=== PATIENT | female | born 1970 | race Caucasian/White ===

== ENCOUNTER 2018-08-25 12:05 | Observation (INO) ==
[2018-08-25] MEDS ORDERED: Naloxone 0.4 MG/ML INJ IVP PRN (12:24)
[2018-08-25] MEDS ORDERED: Piperacillin/Tazobactam 3.375 GM in 0.9 % Sodium Chloride Mini Bag 100 ML IVPB SCH (12:26)
[2018-08-25] MEDS ORDERED: MORPHINE SUL Oral CONC 10 MG/0.5 ML ORAL.SYG PO PRN (12:27)
[2018-08-25] MEDS ORDERED: Acetaminophen 325 MG TABLET PO PRN (12:27)
[2018-08-25] MEDS ORDERED: OXYCODONE Oral CONC 10 MG/0.5 ML ORAL.SYG SL PRN (12:27)
[2018-08-25] MEDS ORDERED: Isovue-370 500 ML INFUS..BTL IV ONE (12:27)
--- NOTE | 2018-08-25 12:37 | General Surg History&Physical ---
<Cookie Juan - Last Filed: 08/25/18 12:49> Date of Encounter: 08/25/18 Time of Encounter: 12:33 Assessment and Plan (1) RUQ pain Current Visit: Yes Status: Acute The assessment and plan as outlined above was discussed with the patient and/or family members who expressed understanding and agreement. All questions were answered. NPO IV fluids- 100ml/hour IV antibiotics- Zosyn CT scan of abdomen/pelvis with PO/IV contrast Supportive care/pain control Labs- CBC, BMP, Hepatic panel, test PPI therapy daily EPCDs to bilateral lower extremities We will plan for a laparoscopic cholecystectomy with Dr. Garcia pending further testing History of Present Illness Chief complaint: RUQ abdominal pain HPI: Ms. Carrasco is a 48 year old female who presents to the outpatient surgical office today to see Dr. Garcia. She complains of a 5 day history of continuous abdominal pain. She describes the pain as being located in the epigastric region and radiating into the RUQ. She admits to nausea and belching. Admits to diarrhea and increased gas. Denies fevers/chills. She admits to having a RUQ ultrasound which demonstrated gallbladder polyps. She has an elevated WBC count of 13,000. Her physical examination is suggestive of acute cholecystitis. Dr. Garcia has recommended admission to the hospital and CT of the abdomen/pelvis to rule out secondary causes of her pain. Will initiate IV antibiotic therapy. Past Med Surg Social Fam HX - Past Medical History Source: old records reviewed Medical history: other Additional medical history: Heavy menses - Past Surgical History Additional surgical history: D&C - Social History Smoking Status: Never smoker Alcohol use: none Drug use: none Current living situation: Home - Independent Activity Level: Independent ambulation Review of Systems All systems PM: reviewed and no additional remarkable complaints except as stated (in the HPI) All systems PM: The remainder of the systems were reviewed and are negative General Surgery Exam - General physical appearance well developed, well nourished - Eyes normal ocular movement - ENT atraumatic, normocephalic - Neck trachea midline - Respiratory normal respiratory effort, clear to auscultation - Cardiovascular Cardiovascular exam: Present: tachycardia - Abdomen Abdomen general surgery: Present: bowel sounds present, soft, tender Abdominal Tenderness: Present: epigastic, RUQ (positive montoya's sign) - Neurologic Present: CN 2-12 grossly intact - Musculoskeletal Present: normal gait, normal posture - Psychiatric Psychiatric general surgery: Present: appropriate, oriented to person, oriented to place, oriented to time, speech is normal, memory intact Results - Labs All other labs normal. - Attending Attestation For this encounter, I have reviewed the IS PROJECT MANAGER or PA documentation, treatment plan, and medical decision making; and I have had face to face time with this patient. <Davie Garcia T - Last Filed: 08/26/18 07:54> Date of Encounter: 08/25/18 Assessment and Plan (1) RUQ pain Current Visit: Yes Status: Acute The assessment and plan as outlined above was discussed with the patient and/or family members who expressed understanding and agreement. All questions were answered. History of Present Illness HPI: Ms. Carrasco is a 48 year old female Review of Systems All systems PM: The remainder of the systems were reviewed and are negative General Surgery Exam Initial Vital Signs Temp Pulse Resp BP Pulse Ox 97.7 F 91 18 165/96 100 08/25/18 12:57 08/25/18 12:57 08/25/18 12:57 08/25/18 12:57 08/25/18 12:57 Results - Labs 08/26/18 05:39 08/26/18 05:39 Abnormal lab results Sodium 134 mEq/L (136-145) L 08/26/18 05:39 Carbon Dioxide 14 mEq/L (23-29) L 08/26/18 05:39 Creatinine 1.31 mg/dL (0.60-1.20) H 08/26/18 05:39 Est GFR ( Amer) 52 (> 60) L 08/26/18 05:39 Est GFR (Non-Af Amer) 43 (> 60) L 08/26/18 05:39 Glucose 54 mg/dL (70-105) L 08/26/18 05:39 Calculated Osmolality 276 (280-300) L 08/26/18 05:39 Diabetes panel 08/25/18 08/26/18 Range/Units 12:46 05:39 Sodium 136 134 L (136-145) mEq/L Potassium 3.6 4.0 (3.5-5.1) mEq/L Chloride 102 104 (98-107) mEq/L Carbon Dioxide 18 L 14 L (23-29) mEq/L BUN 15 15 (6-20) mg/dL Creatinine 1.19 1.31 H (0.60-1.20) mg/dL Glucose 70 54 L (70-105) mg/dL Calcium 9.5 8.8 (8.6-10.3) mg/dL AST 13 (13-39) Units/L ALT 8 (7-52) Units/L Alkaline Phosphatase 71 (34-104) Units/L Albumin 4.6 (3.5-5.7) g/dL Calcium panel 08/25/18 08/26/18 Range/Units 12:46 05:39 Calcium 9.5 8.8 (8.6-10.3) mg/dL Albumin 4.6 (3.5-5.7) g/dL Pituitary panel 08/25/18 08/26/18 Range/Units 12:46 05:39 Sodium 136 134 L (136-145) mEq/L Potassium 3.6 4.0 (3.5-5.1) mEq/L Chloride 102 104 (98-107) mEq/L Carbon Dioxide 18 L 14 L (23-29) mEq/L BUN 15 15 (6-20) mg/dL Creatinine 1.19 1.31 H (0.60-1.20) mg/dL Glucose 70 54 L (70-105) mg/dL Calcium 9.5 8.8 (8.6-10.3) mg/dL Adrenal panel 08/25/18 08/26/18 Range/Units 12:46 05:39 Sodium 136 134 L (136-145) mEq/L Potassium 3.6 4.0 (3.5-5.1) mEq/L Chloride 102 104 (98-107) mEq/L Carbon Dioxide 18 L 14 L (23-29) mEq/L BUN 15 15 (6-20) mg/dL Creatinine 1.19 1.31 H (0.60-1.20) mg/dL Glucose 70 54 L (70-105) mg/dL Calcium 9.5 8.8 (8.6-10.3) mg/dL Total Bilirubin 1.0 (0.3-1.0) mg/dL AST 13 (13-39) Units/L ALT 8 (7-52) Units/L Alkaline Phosphatase 71 (34-104) Units/L Albumin 4.6 (3.5-5.7) g/dL All other labs normal. - Attending Attestation I have personally performed a face to face evaluation on this patient. I have reviewed and agree with the care plan. History and Exam by me shows: The patient is seen and evaluated in the office and discussed with the clinical nurse practitioner. The patient has epigastric and right upper quadrant pain associated with leukocytosis and diarrhea. The original ultrasound of the right upper quadrant is reviewed. She has 2 small possible polyps in the gallbladder with no gallbladder wall thickening or pericholecystic fluid. These are very soft findings to support acute cholecystitis. We will plan to get a CAT scan of the abdomen to see if a secondary cause can be identified. She will be started on IV antibiotics and IV fluids in anticipation of further diagnostic testing. The presumptive diagnosis of acute cholecystitis is made, however, this has not been confirmed Davie Garcia MD FACS
[2018-08-25] MEDS ORDERED: Isovue-370 500 ML INFUS..BTL PO ONE (12:42)
[2018-08-25 13:15] LABS: Basophils # 0.1 K/mcL (0.0-0.2); Basophils % 0.7 %; Eosinophils % 0.3 %; Hematocrit 45.7 % (35.3-44.9); Hemoglobin 15.8 g/dL (11.5-15.4); Immature Granulocytes % 0.6 % (0-4); Lymphocytes # 1.7 K/mcL (0.6-4.6); Lymphocytes % 14.9 %; Mean Corpuscular HGB Conc 34.6 g/dL (31.6-35.5); Mean Corpuscular Hemoglobin 30.3 pg (28.0-33.3); Mean Corpuscular Volume 87.5 fL (83.0-100.0); Monocytes # 0.8 K/mcL (0.0-1.3); Monocytes % 6.7 %; Neutrophils # 8.9 K/mcL (1.6-8.9); Platelet Count 320 K/mcL (140-400); Red Blood Count 5.22 M/mcL (3.82-4.97); Red Cell Distribution Width 12.7 % (11.5-14.5); Segmented Neutrophils % 76.8 %
[2018-08-25 13:46] LABS: Albumin 4.6 g/dL (3.5-5.7); Albumin/Globulin Ratio 1.6 (1.1-2.2); Bilirubin,Direct 0.1 mg/dL (0.0-0.2); Bilirubin,Indirect 0.9 mg/dL (0.0-1.2); Calcium 9.5 mg/dL (8.6-10.3); Globulin 2.9 g/dL (2.4-3.5); Potassium 3.6 mEq/L (3.5-5.1); Total Protein 7.5 g/dL (6.4-8.9)
[2018-08-25] MEDS ORDERED: *HR* Metoprolol 5 MG/5 ML VIAL IVP PRN (14:58)
[2018-08-25] MEDS: 0.9 % Sodium Chloride 1,000 ML IVC SCH (16:04)
[2018-08-26] MEDS: Ondansetron 4 MG/2 ML VIAL IVP PRN ×2 (00:04→05:40)
[2018-08-26 06:13] LABS: Basophils # 0.1 K/mcL (0.0-0.2); Basophils % 1.2 %; Eosinophils # 0.1 K/mcL (0.0-0.6); Eosinophils % 0.8 %; Hematocrit 42.8 % (35.3-44.9); Hemoglobin 14.6 g/dL (11.5-15.4); Immature Granulocytes % 0.8 % (0-4); Lymphocytes # 1.4 K/mcL (0.6-4.6); Lymphocytes % 16.2 %; Mean Corpuscular HGB Conc 34.1 g/dL (31.6-35.5); Mean Corpuscular Hemoglobin 30.4 pg (28.0-33.3); Mean Platelet Volume 10.1 fL (9.4-12.4); Monocytes # 0.7 K/mcL (0.0-1.3); Monocytes % 7.9 %; Neutrophils # 6.1 K/mcL (1.6-8.9); Platelet Count 247 K/mcL (140-400); Red Blood Count 4.81 M/mcL (3.82-4.97); Red Cell Distribution Width 12.7 % (11.5-14.5); Segmented Neutrophils % 73.1 %
[2018-08-26 06:33] LABS: Calcium 8.8 mg/dL (8.6-10.3)
[2018-08-26] MEDS: Piperacillin/Tazobactam 3.375 GM in 0.9 % Sodium Chloride Mini Bag 100 ML IVPB SCH ×3 (07:57→17:55)
[2018-08-26] MEDS ORDERED: Simethicone 40 MG/0.6 ML MLS IR ONE (08:26)
[2018-08-26] MEDS ORDERED: Tetracaine/Benzocaine/Butamben 1 SPRAY AEROSOL MM ONE (08:26)
--- NOTE | 2018-08-26 08:28 | History & Physical Report ---
Date of Encounter: 08/26/18 Time of Encounter: 08:20 24 Hour HP Update - Instructions Instructions: If the History and Physical is less than 30 days old and was completed prior to A.M. admission and or procedure and has NOT been updated on calendar day of procedure please complete this update prior to performing procedure. - Update Patient reports changes in Medical Condition: No Changes in examination, assessment, or condition: No Changes in Medication: No Preop tests/diagnostics Reviewed: Yes Surgery Remains Indicated: Yes Consent for Planned Operative Procedure(s) Verified: Yes - Pre-Operative Checklist Preoperative Checklist Indicated: No Is VTE Prophylaxis Indicated?: NO
[2018-08-26] MEDS ORDERED: Pantoprazole 40 MG VIAL IVP SCH (09:00)
--- NOTE | 2018-08-26 11:47 | General Surgery Progress Note ---
<Cookie Juan - Last Filed: 08/26/18 12:31> Date of Encounter: 08/26/18 Time of Encounter: 11:25 - Assessment and Plan (1) Gastroenteritis Current Visit: Yes Status: Acute Suspect gastroenteritis as the source of patient symptoms given improvement with supportive measures CT scan of abdomen/pelvis shows no evidence of cholelithiasis or cholecystits Clear liquid diet today Decrease IV fluids to 75ml/hour IV antibiotics- Zosyn Supportive measures PPI therapy Continue to monitor- if recurrence of symptoms, will plan for EGD with Dr. Garcia in the next 24 hours (2) RUQ pain Current Visit: Yes Status: Resolved (3) MARLY (acute kidney injury) Current Visit: Yes Status: Acute Continue IV fluids Avoid nephrotoxic medications Repeat am labs Subjective Patient reports: no new complaints, feels better, voiding w/o difficulty, flatus , afebrile, other (Patient states that her feeling of nausea/bloating has improved with supportive measures) Objective Vital Signs - Last 8 Hours Temp Pulse Resp BP Pulse Ox 08/26/18 06:35 98.0 F 87 16 148/86 98 Intake and Output 08/25/18 08/26/18 08/26/18 23:59 07:59 15:59 Intake Total 100 / 100 1100 / 1100 Output Total 350 / 350 325 / 325 300 / 300 Balance -250 / -250 775 / 775 -300 / -300 Intake: IV Fluids 100 / 100 1100 / 1100 0.9 % Sodium Chloride 1,000 ML 1000 / 1000 @ 125 mls/hr IVC .Q8H [facility] Rx#: [id number] Zosyn 3.375 GM In 0.9 % Sodium 100 / 100 100 / 100 Chloride (Mini-Bag +) 100 ML @ 25 mls/hr IVPB Q8HR [facility] Rx#: [id number] Oral 0 / 0 Output: Urine 350 / 350 325 / 325 300 / 300 Other: Weight 57.9 kg 61.9 kg Blood Glucose* 51 166 Patient Weight 08/26/18 23:59 Weight 61.9 kg - General physical appearance well developed, well nourished, no distress, no pain - Eyes normal ocular movement - ENT normal mucosa, atraumatic, normocephalic - Neck Neck exam: trachea midline - Respiratory normal expansion, normal respiratory effort, clear to auscultation - Cardiovascular Cardiovascular exam: Present: RRR - Abdomen Abdomen: Present: bowel sounds present, soft, non tender - Integumentary no rash, no growths, no abnormal pigmentation - Neurologic CN 2-12 grossly intact - Musculoskeletal normal gait, normal posture - Psychiatric oriented to time, oriented to person, oriented to place, speech is normal, memory intact - Labs 08/26/18 05:39 08/26/18 05:39 Diabetes panel 08/25/18 08/26/18 Range/Units 12:46 05:39 Sodium 136 134 L (136-145) mEq/L Potassium 3.6 4.0 (3.5-5.1) mEq/L Chloride 102 104 (98-107) mEq/L Carbon Dioxide 18 L 14 L (23-29) mEq/L BUN 15 15 (6-20) mg/dL Creatinine 1.19 1.31 H (0.60-1.20) mg/dL Glucose 70 54 L (70-105) mg/dL Calcium 9.5 8.8 (8.6-10.3) mg/dL AST 13 (13-39) Units/L ALT 8 (7-52) Units/L Alkaline Phosphatase 71 (34-104) Units/L Albumin 4.6 (3.5-5.7) g/dL Calcium panel 08/25/18 08/26/18 Range/Units 12:46 05:39 Calcium 9.5 8.8 (8.6-10.3) mg/dL Albumin 4.6 (3.5-5.7) g/dL Pituitary panel 08/25/18 08/26/18 Range/Units 12:46 05:39 Sodium 136 134 L (136-145) mEq/L Potassium 3.6 4.0 (3.5-5.1) mEq/L Chloride 102 104 (98-107) mEq/L Carbon Dioxide 18 L 14 L (23-29) mEq/L BUN 15 15 (6-20) mg/dL Creatinine 1.19 1.31 H (0.60-1.20) mg/dL Glucose 70 54 L (70-105) mg/dL Calcium 9.5 8.8 (8.6-10.3) mg/dL Adrenal panel 08/25/18 08/26/18 Range/Units 12:46 05:39 Sodium 136 134 L (136-145) mEq/L Potassium 3.6 4.0 (3.5-5.1) mEq/L Chloride 102 104 (98-107) mEq/L Carbon Dioxide 18 L 14 L (23-29) mEq/L BUN 15 15 (6-20) mg/dL Creatinine 1.19 1.31 H (0.60-1.20) mg/dL Glucose 70 54 L (70-105) mg/dL Calcium 9.5 8.8 (8.6-10.3) mg/dL Total Bilirubin 1.0 (0.3-1.0) mg/dL AST 13 (13-39) Units/L ALT 8 (7-52) Units/L Alkaline Phosphatase 71 (34-104) Units/L Albumin 4.6 (3.5-5.7) g/dL - Imaging CT scan - abdomen: report reviewed CT scan - pelvis: report reviewed Additional Studies: Abdomen/Pelvis CT 08/25/18 15:00 IMPRESSION: Fatty liver. No acute process of the abdomen or pelvis. D/ / 08/25/2018 15:47:12 Fahad Bangura MD / artem Interpreting Provider: Fahad Bangura MD Consult Discharge Plan - Plan Referrals: NONE,PCP [Primary Care Provider] - - Attending Attestation For this encounter, I have reviewed the FABRIC INSPECTOR or PA documentation, treatment plan, and medical decision making; and I have had face to face time with this patient. <Davie Garcia - Last Filed: 08/26/18 15:42> Date of Encounter: 08/26/18 - Assessment and Plan (1) RUQ pain Current Visit: Yes Status: Resolved Objective Vital Signs - Last 8 Hours Temp Pulse Resp BP Pulse Ox 08/26/18 12:22 98.2 F 77 16 161/82 99 Intake and Output 08/25/18 08/26/18 08/26/18 23:59 07:59 15:59 Intake Total 100 / 100 1100 / 1100 1200 / 1200 Output Total 350 / 350 325 / 325 1200 / 1200 Balance -250 / -250 775 / 775 0 / 0 Intake: IV Fluids 100 / 100 1100 / 1100 0.9 % Sodium Chloride 1,000 ML 1000 / 1000 @ 125 mls/hr IVC .Q8H [facility] Rx#: [id number] Zosyn 3.375 GM In 0.9 % Sodium 100 / 100 100 / 100 Chloride (Mini-Bag +) 100 ML @ 25 mls/hr IVPB Q8HR [facility] Rx#: [id number] Oral 0 / 0 1200 / 1200 Output: Urine 350 / 350 325 / 325 1200 / 1200 Other: Meal Lunch Weight 57.9 kg 61.9 kg Blood Glucose* 51 166 Patient Weight 08/26/18 23:59 Weight 61.9 kg - Labs 08/26/18 05:39 08/26/18 05:39 Diabetes panel 08/26/18 Range/Units 05:39 Sodium 134 L (136-145) mEq/L Potassium 4.0 (3.5-5.1) mEq/L Chloride 104 (98-107) mEq/L Carbon Dioxide 14 L (23-29) mEq/L BUN 15 (6-20) mg/dL Creatinine 1.31 H (0.60-1.20) mg/dL Glucose 54 L (70-105) mg/dL Calcium 8.8 (8.6-10.3) mg/dL Calcium panel 08/26/18 Range/Units 05:39 Calcium 8.8 (8.6-10.3) mg/dL Pituitary panel 08/26/18 Range/Units 05:39 Sodium 134 L (136-145) mEq/L Potassium 4.0 (3.5-5.1) mEq/L Chloride 104 (98-107) mEq/L Carbon Dioxide 14 L (23-29) mEq/L BUN 15 (6-20) mg/dL Creatinine 1.31 H (0.60-1.20) mg/dL Glucose 54 L (70-105) mg/dL Calcium 8.8 (8.6-10.3) mg/dL Adrenal panel 08/26/18 Range/Units 05:39 Sodium 134 L (136-145) mEq/L Potassium 4.0 (3.5-5.1) mEq/L Chloride 104 (98-107) mEq/L Carbon Dioxide 14 L (23-29) mEq/L BUN 15 (6-20) mg/dL Creatinine 1.31 H (0.60-1.20) mg/dL Glucose 54 L (70-105) mg/dL Calcium 8.8 (8.6-10.3) mg/dL - Attending Attestation I have personally performed a face to face evaluation on this patient. I have reviewed and agree with the care plan. History and Exam by me shows: The patient is seen and evaluated on morning rounds with the medical student and discussed with the clinical nurse practitioner. Her abdominal examination is improved. By blood cell count has normalized. I do not believe that she has acute cholecystitis. I believe that this is likely gastroenteritis. If she continues to have abdominal pain, upper endoscopy may be indicated. We will follow her clinically today and start her on clear liquids Davie Garcia MD FACS
[2018-08-26] MEDS: 0.9 % Sodium Chloride 1,000 ML IVC SCH ×2 (12:44)
[2018-08-27] MEDS: Piperacillin/Tazobactam 3.375 GM in 0.9 % Sodium Chloride Mini Bag 100 ML IVPB SCH (00:38)
[2018-08-27] MEDS: 0.9 % Sodium Chloride 1,000 ML IVC SCH (00:39)
[2018-08-27 07:03] LABS: BUN/Creatinine Ratio 6 (6-26); Blood Urea Nitrogen 7 mg/dL (6-20); Calcium 8.4 mg/dL (8.6-10.3); Carbon Dioxide 21 mEq/L (23-29); Chloride 105 mEq/L (98-107); Glucose 88 mg/dL (70-105); Osmolality,Calculated 277 (280-300); Potassium 3.4 mEq/L (3.5-5.1); Sodium 135 mEq/L (136-145); eGFR For Non-African Americans 50 (> 60)
[2018-08-27 07:38] VITALS: BP 166/94
[2018-08-27] MEDS: Ondansetron 4 MG/2 ML VIAL IVP PRN (09:43)
--- NOTE | 2018-08-27 11:15 | Discharge Summary ---
<Orquidea Cervantes - Last Filed: 08/27/18 11:28> Date of Encounter: 08/27/18 Time of Encounter: 07:15 - Discharge Diagnosis (1) RUQ pain Priority: Primary Status: Resolved (2) Gastroenteritis Priority: Primary Status: Acute (3) MARLY (acute kidney injury) Priority: Secondary Status: Acute General Surgery Exam Initial Vital Signs Temp Pulse Resp BP Pulse Ox 97.7 F 91 18 165/96 100 08/25/18 12:57 08/25/18 12:57 08/25/18 12:57 08/25/18 12:57 08/25/18 12:57 Vital Signs Temp Pulse Resp BP Pulse Ox 08/27/18 07:37 97.8 F 79 15 166/94 97 08/27/18 03:18 98.2 F 78 16 131/82 99 08/26/18 23:56 98.0 F 81 16 158/94 99 08/26/18 19:35 98.0 F 86 16 153/87 99 08/26/18 15:42 98.8 F 75 16 165/79 98 08/26/18 12:22 98.2 F 77 16 161/82 99 Intake and Output 08/26/18 08/27/18 08/27/18 23:59 07:59 15:59 Intake Total 200 / 200 Output Total 800 / 800 600 / 600 Balance -800 / -800 -400 / -400 Intake: IV Fluids 200 / 200 Zosyn 3.375 GM In 0.9 % Sodium 200 / 200 Chloride (Mini-Bag +) 100 ML @ 25 mls/hr IVPB Q8HR [facility] Rx#: [id number] Output: Urine 800 / 800 600 / 600 Other: Weight 62.1 kg Patient Weight 08/27/18 23:59 Weight 62.1 kg VITAL SIGNS: Reviewed. See [facility] GENERAL: In no apparent distress. HEENT: Normocephalic, atraumatic, pupils are equal and reactive, extraocular motions intact, oropharynx is pink and moist, there is no neck adenopathy or JVD noted. CHEST/RESPIRATORY: The thorax is free from signs of trauma. Lung sounds: clear to auscultation, normal respiratory effort CARDIAC: Regular rate and rhythm. Normal S1 and S2, without murmurs, gallops, or rubs. VASCULAR: No Edema. 2+ peripheral pulses. ABDOMEN: s/ NT, ABS MUSCULOSKELETAL: Good range of motion of all major joints. Extremities without clubbing, cyanosis or edema. NEUROLOGIC EXAM: Alert and oriented x 3. Speech normal. Follows commands. PSYCHIATRIC: Mood normal. SKIN: No rash or lesions. - Hospital Course Hospital course: Ms. Carrasco is a 48 year old female who presented on 08/25/2018 with complaints of right upper quadrant pain. A CT of the abdomen and pelvis was completed which did not note acute cholecystitis. She was started on a diet and had resolution of her symptoms. She is afebrile, abdominal discomfort is resolved, vital signs are stable, and ambulating avoiding without difficulty. She is advised to avoid nephrotoxic medications. We will begin discharge planning to home with a follow-up in the office in approximately 2 weeks. She is recommended to return sooner if she has return of her symptoms and consideration will be given for an EGD with Dr. Garcia. - Time Spent with Patient Total time spent providing and/or coordinating discharge services: - Discharge Medications Home Medications: l-Norgest/E.estradiol-E.estrad [Seasonique 0.15-0.03-0.01 Tab] 1 tab PO HS 08/25 [History] Allergies/Adverse Reactions: 3 Allergy/AdvReac Type Severity Reaction Status Date / Time No Known Allergies Allergy Verified 08/25/18 13:13 Date of admission: 08/25/18 12:35 Primary care physician: PCP NONE Discharging clinician: Davie Garcia (Aditya Cervantes) Anticipated date of discharge: 08/27/18 Labs on day of discharge: Labs from last 24 hours 08/27/18 08/26/18 05:58 08:58 Sodium 135 L Potassium 3.4 L Chloride 105 Carbon Dioxide 21 L BUN 7 Creatinine 1.16 Est GFR ( Amer) > 60 Est GFR (Non-Af Amer) 50 L BUN/Creatinine Ratio 6 Glucose 88 POC Glucose 166 H Calculated Osmolality 277 L Calcium 8.4 L - Impressions ITS Impressions Abdomen/Pelvis CT 08/25/18 15:00 IMPRESSION: Fatty liver. No acute process of the abdomen or pelvis. D/ / 08/25/2018 15:47:12 Fahad Bangura MD / artem Interpreting Provider: Fahad Bangura MD - Patient Status Disposition: Home, Self-Care Condition: Good Functional capacity at discharge: independent ambulation Overall status at discharge: patient is progressing back to baseline - Discharge Instructions Instructions: Gastritis (DC), Acute Kidney Injury (DC) Follow Up With: Davie Garcia MD [Partnered Physician] - 09/15/18 10:00 am () NONE,PCP [Primary Care Provider] - Chris Milan MD [Partnered Physician] - 09/04/18 2:00 pm Forms: Inpatient Work/School Release - Diet and Activity Activity: increase activity as tolerated Diet: advance to your usual diet <Davie Garcia - Last Filed: 08/27/18 17:06> Date of Encounter: 08/27/18 - Discharge Diagnosis (1) RUQ pain Status: Resolved General Surgery Exam Initial Vital Signs Temp Pulse Resp BP Pulse Ox 97.7 F 91 18 165/96 100 08/25/18 12:57 08/25/18 12:57 08/25/18 12:57 08/25/18 12:57 08/25/18 12:57 - Hospital Course Hospital course: Ms. Carrasco is a 48 year old female - Time Spent with Patient Total time spent providing and/or coordinating discharge services: Date of admission: 08/25/18 12:35 Primary care physician: PCP NONE Labs on day of discharge: Labs from last 24 hours 08/27/18 08/26/18 05:58 08:58 Sodium 135 L Potassium 3.4 L Chloride 105 Carbon Dioxide 21 L BUN 7 Creatinine 1.16 Est GFR ( Amer) > 60 Est GFR (Non-Af Amer) 50 L BUN/Creatinine Ratio 6 Glucose 88 POC Glucose 166 H Calculated Osmolality 277 L Calcium 8.4 L - Impressions ITS Impressions Abdomen/Pelvis CT 08/25/18 15:00 IMPRESSION: Fatty liver. No acute process of the abdomen or pelvis. D/ / 08/25/2018 15:47:12 Fahad Bangura MD / artem Interpreting Provider: Fahad Bangura MD - Attending Attestation I have personally performed a face to face evaluation on this patient. I have reviewed and agree with the care plan. History and Exam by me shows: The patient is seen and evaluated with the clinical nurse practitioner on morning rounds. She is pain-free and has responded well to therapy. Regular diet trial. She tolerates that she may be discharged. Davie Garcia MD FACS
== END 2018-08-27 12:16 | disposition home or self-care (01) ==
LOC: 3BNU
PROVIDERS: ADMIT Surgery; ATTEND Surgery